=== PATIENT | male | born 1980 ===

== ENCOUNTER 2016-06-02 02:55 | Emergency (ER) | payer SELFPAY ==
[2016-06-02 03:28] LABS: ABSOLUTE NEUTROPHIL COUNT 4.7 K/mm3 (1.8-7.7); BASO # 0.1 K/mm3 (0.0-0.2); BASO % 0.6 % (0.2-1.0); EOS # 0.2 (0.0-0.5); EOS % 2.7 % (0.9-2.9); HEMATOCRIT 43.1 % (32.0-52.0); HEMOGLOBIN 14.7 gm/l (14.0-18.0); IMM NEUT% 0.2 % (0-1); LYMPH # 2.8 (1.0-4.8); LYMPH % 33.2 % (15-45); MEAN CELL VOLUME 86.4 fl (80.0-94.0); MEAN CORPUSCULAR HEMOGLOBIN 29.5 pg (27.0-31.0); MEAN CORPUSCULAR HGB CONC 34.1 g/dl (33.0-37.0); MEAN PLATELET VOLUME 9.7 fl (7.4-10.4); MONO # 0.6 (0.0-0.8); MONO % 7.3 % (4-12); PLATELET COUNT 216 K/mm3 (130-400); RED CELL DISTRIBUTION WIDTH 11.9 % (11.5-14.5)
[2016-06-02 03:39] LABS: ALB/GLOB RATIO 1.4 (>1.0); ALBUMIN 4.2 gm/dL (3.5-5.7); CALCIUM 8.9 mg/dL (8.6-10.3)
[2016-06-02 03:42] LABS: TROPONIN I < 0.01 ng/ml (0.0-0.06)
[2016-06-02 03:46] LABS: CKMB ISOENZYME 2.4 ng/ml (0.6-6.3)
--- NOTE | 2016-06-02 07:55 | RAD ---
CHEST 2 VIEWS HISTORY: Tachycardia. Frontal and lateral chest radiographs dated 06/02/2016. COMPARISON: None. FINDINGS: FOCAL AIRSPACE OPACITY: No gross airspace consolidation. PLEURAL EFFUSION: None. CARDIOMEDIASTINAL SILHOUETTE: Nonenlarged. PNEUMOTHORAX: None identified. OSSEOUS STRUCTURES: Minor thoracic disc degeneration. IMPRESSION: No acute cardiopulmonary process noted.
== END 2016-06-02 04:22 | disposition home or self-care (01) ==
LOC: ED 02:55
DX: I47.1 Supraventricular tachycardia (principal); R53.81 Other malaise; F17.210 Nicotine dependence, cigarettes, uncomplicated